=== PATIENT | female | born 1945 | race Caucasian/White ===

== ENCOUNTER 2019-02-14 07:33 | Day surgery (SDC) | payer OTHER ==
[2019-02-14] MEDS ORDERED: oxyCODONE/ACETAMINOPHEN 5/325 TABLET PO ONE (10:32)
== END 2019-02-14 11:30 | disposition home or self-care (01) ==
LOC: OPSURG 07:33
PROVIDERS: ATTEND Physical Medicine & Rehabilitation
DX: M47.817 Spondylosis without myelopathy or radiculopathy, lumbosacral region (principal); M54.5 Low back pain
CPT/HCPCS: 64635; 64636; A9270